=== PATIENT | female | born 1970 | race Caucasian/White ===

== ENCOUNTER 2016-11-25 11:08 | Emergency (ER) | payer BC ==
--- NOTE | 2016-11-25 13:38 | ED NURSING NOTES ---
Clinical Report - Nurses [facility] [address] [place] [address] 11/25/2016 11:08 Patient: HAYLEY RAMIREZ TRIAGE Triage time 11:19. Acuity: LEVEL 4. Chief Complaint: REDNESS and PAIN TO RIGHT EYE. Alert. No acute distress. SEPSIS SCREEN: Sepsis Screen. Negative (no infection suspected/documented). REINALDO COMA SCORE: Reinaldo Coma Scale: 15- eyes open spontaneously (4); best verbal response- oriented x 4 (5); best motor response- obeys commands (6). --11:26 Julissa Vazquez R.N. 11:19 11/25/16. BP: 117/76. HR: 86. RR: 16. O2 saturation: 97%. Temp: 97.7 F. Pain level now: 11/27. --11:26 Julissa Vazquez R.N. Weight: 99.7 kg stated. Height/Length: 62 inches Per Patient. BMI: 40.2. --11:19 Julissa Vazquez R.N. Medications Gabapentin Oral (Solution 250 mg/5mL) 5 mL, 2x a day. HydrOXYzine HCl Oral, as needed. OxyCODONE HCl Oral. Propranolol HCl ER Oral 10mg day . Rizatriptan Benzoate Oral. Adam Natural Pain Relieving External, as needed. --11:22 Julissa Vazquez R.N. Voltaren Transdermal. --11:22 Julissa Vazquez R.N. Ibuprofen Oral 800 mg. --11:22 Julissa Vazquez R.N. DULoxetine HCl Oral 20mg daily. --11:23 Julissa Vazquez R.N. Allergies Keflex. --11:23 Julissa Vazquez R.N. Antibiotic. --11:24 Julissa Vazquez R.N. The following entry was struck by Julissa Vazquez R.N., 11:23 (11/25/16) Reason - other. <<STRICKEN ENTRY-- No Known Drug Allergy. --11:22 Julissa Vazquez R.N. --END STRIKE>>. History Arrived by private vehicle. Historian: patient. Unaccompanied. Primary physician (Trevor). Onset. (2 days ago). She did not sustain an injury. 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 PAST MEDICAL HX: Immunizations: up-to-date. SOCIAL HX: Never smoker. No alcohol use or drug use. No infectious disease exposure. ABUSE ASSESSMENT: Abuse assessment: The patient was asked "Do you feel safe in your home?" and "Has anyone hurt you or threatened to hurt you?". No report of abuse. NUTRITIONAL RISK ASSESSMENT: The nutritional risk assessment revealed no deficiencies. FUNCTIONAL ASSESSMENT: Functional assessment: no impairments noted. LEARNING NEEDS ASSESSMENT: The learning needs assessment revealed no barriers. --11:26 Julissa Vazquez R.N. ( pt also c/o left arm pain. Denies injury.). --11:26 Julissa Vazquez R.N. PROBLEMS: Allergic Reaction. Fibromyalgia. Herniated Disk. Sciatica. Back Pain. Abdominal Pain. Nephrolithiasis. Tendonitis. --11:24 Julissa Vazquez R.N. ADDITIONAL SURGERIES: Back Surgery. Carpal Tunnel Surgery. Lithotripsy. Neck Surgery. --11:24 Julissa Vazquez R.N. Interventions ID band on patient. Ambulatory. --11:26 Julissa Vazquez R.N. PHYSICAL ASSESSMENT Ambulatory to room. ( left arm tenderness. No swelling present. N/V WNL). GENERAL / NEURO / PSYCH: Alert. Appears in no acute distress. RESPIRATORY: Respirations not labored. SKIN: Skin is warm and dry. --11:27 Julissa Vazquez R.N. NURSING PROGRESS NOTES Head of bed elevated. Two patient identifiers checked. Call light placed in reach. Side rails up x 2. Bed placed in lowest position. Brakes of bed on. Patient ready for evaluation- chart flagged. --11:27 Julissa Vazquez R.N. Patient informed about reason for wait and about plan of care. --13:31 Julissa Vazquez R.N. DISPOSITION / DISCHARGE 13:41 11/25/16. BP: 159/56. HR: 78. RR: 16. O2 saturation: 100%. Temp: 97.9 F. Up-Barrios pain scale: 10/28. --13:42 Julissa Vazquez R.N. Condition at departure: stable. No learning barriers present. Discharge instructions provided and reviewed with the patient. Reviewed medication(s) side effects, precautions, dosing and course information. Prescription(s) given to the patient. Reviewed referral to family practice for followup. Patient verbalized understanding. Written instructions provided in Armenian. The patient was discharged home and unaccompanied at time of discharge. She left the Emergency Department ambulatory and via private vehicle. Medication list reviewed and validated. --13:42 Julissa Vazquez R.N. Departure time: 13:42. --13:42 Julissa Vazquez R.N. Locked/Released at 11/25/2016 16:23 by Julissa Vazquez R.N.
--- NOTE | 2016-11-25 13:38 | ED NURSING NOTES ---
Clinical Report - Nurses [facility] [address] [place] [address] 11/25/2016 11:08 Patient: HAYLEY RAMIREZ TRIAGE Triage time 11:19. Acuity: LEVEL 4. Chief Complaint: REDNESS and PAIN TO RIGHT EYE. Alert. No acute distress. SEPSIS SCREEN: Sepsis Screen. Negative (no infection suspected/documented). REINALDO COMA SCORE: Reinaldo Coma Scale: 15- eyes open spontaneously (4); best verbal response- oriented x 4 (5); best motor response- obeys commands (6). --11:26 Julissa Vazquez R.N. 11:19 11/25/16. BP: 117/76. HR: 86. RR: 16. O2 saturation: 97%. Temp: 97.7 F. Pain level now: 11/27. --11:26 Julissa Vazquez R.N. Weight: 99.7 kg stated. Height/Length: 62 inches Per Patient. BMI: 40.2. --11:19 Julissa Vazquez R.N. Medications Gabapentin Oral (Solution 250 mg/5mL) 5 mL, 2x a day. HydrOXYzine HCl Oral, as needed. OxyCODONE HCl Oral. Propranolol HCl ER Oral 10mg day . Rizatriptan Benzoate Oral. Adam Natural Pain Relieving External, as needed. --11:22 Julissa Vazquez R.N. Voltaren Transdermal. --11:22 Julissa Vazquez R.N. Ibuprofen Oral 800 mg. --11:22 Julissa Vazquez R.N. DULoxetine HCl Oral 20mg daily. --11:23 Julissa Vazquez R.N. Allergies Keflex. --11:23 Julissa Vazquez R.N. Antibiotic. --11:24 Julissa Vazquez R.N. The following entry was struck by Julissa Vazquez R.N., 11:23 (11/25/16) Reason - other. <<STRICKEN ENTRY-- No Known Drug Allergy. --11:22 Julissa Vazquez R.N. --END STRIKE>>. History Arrived by private vehicle. Historian: patient. Unaccompanied. Primary physician (Trevor). Onset. (2 days ago). She did not sustain an injury. 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 PAST MEDICAL HX: Immunizations: up-to-date. SOCIAL HX: Never smoker. No alcohol use or drug use. No infectious disease exposure. ABUSE ASSESSMENT: Abuse assessment: The patient was asked "Do you feel safe in your home?" and "Has anyone hurt you or threatened to hurt you?". No report of abuse. NUTRITIONAL RISK ASSESSMENT: The nutritional risk assessment revealed no deficiencies. FUNCTIONAL ASSESSMENT: Functional assessment: no impairments noted. LEARNING NEEDS ASSESSMENT: The learning needs assessment revealed no barriers. --11:26 Julissa Vazquez R.N. ( pt also c/o left arm pain. Denies injury.). --11:26 Julissa Vazquez R.N. PROBLEMS: Allergic Reaction. Fibromyalgia. Herniated Disk. Sciatica. Back Pain. Abdominal Pain. Nephrolithiasis. Tendonitis. --11:24 Julissa Vazquez R.N. ADDITIONAL SURGERIES: Back Surgery. Carpal Tunnel Surgery. Lithotripsy. Neck Surgery. --11:24 Julissa Vazquez R.N. Interventions ID band on patient. Ambulatory. --11:26 Julissa Vazquez R.N. PHYSICAL ASSESSMENT Ambulatory to room. ( left arm tenderness. No swelling present. N/V WNL). GENERAL / NEURO / PSYCH: Alert. Appears in no acute distress. RESPIRATORY: Respirations not labored. SKIN: Skin is warm and dry. --11:27 Julissa Vazquez R.N. NURSING PROGRESS NOTES Head of bed elevated. Two patient identifiers checked. Call light placed in reach. Side rails up x 2. Bed placed in lowest position. Brakes of bed on. Patient ready for evaluation- chart flagged. --11:27 Julissa Vazquez R.N. Patient informed about reason for wait and about plan of care. --13:31 Julissa Vazquez R.N. DISPOSITION / DISCHARGE 13:41 11/25/16. BP: 159/56. HR: 78. RR: 16. O2 saturation: 100%. Temp: 97.9 F. Up-Barrios pain scale: 10/28. --13:42 Julissa Vazquez R.N. Condition at departure: stable. No learning barriers present. Discharge instructions provided and reviewed with the patient. Reviewed medication(s) side effects, precautions, dosing and course information. Prescription(s) given to the patient. Reviewed referral to family practice for followup. Patient verbalized understanding. Written instructions provided in Kiswahili. The patient was discharged home and unaccompanied at time of discharge. She left the Emergency Department ambulatory and via private vehicle. Medication list reviewed and validated. --13:42 Julissa Vazquez R.N. Departure time: 13:42. --13:42 Julissa Vazquez R.N. Locked/Released at 11/25/2016 16:23 by Julissa Vazquez R.N.
--- NOTE | 2016-11-25 13:38 | ED CLINICAL REPORT ---
Clinical Report - Physicians/Mid Levels [facility] [address] [place] [address] 11/25/2016 11:08 Patient: HAYLEY RAMIREZ Time Seen: 13:09 Nov 25 2016. Arrived- By private vehicle. Historian- patient. HISTORY OF PRESENT ILLNESS Chief Complaint: EYE PAIN and REDNESS. This started just prior to arrival, involves the right eye and is characterized as mild. The patient did not sustain an injury. Eye pain and itching. No eye redness or eye discharge. ( Patient reports drainage from the right eye today while awakening, yellow and green in nature, with swelling inferior to the eye. No injury or trauma. Some blurred vision this morning upon awakening. No blurred vision currently. No diplopia. No vision changes. No trauma. 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 Denies history of cataracts, previous ocular surgeries. Denies wearing contact lenses or corrective lenses.). REVIEW OF SYSTEMS All systems otherwise negative, except as recorded above. PAST HISTORY See nurses notes. No history of prior eye injury. Problems: Allergic Reaction. Fibromyalgia. Herniated Disk. Sciatica. Back Pain. Abdominal Pain. Nephrolithiasis. Tendonitis. Immunizations. LNMP - Last Normal Menstrual Period. Renal Colic [RuleOut]. Additional Surgeries: Back Surgery. Carpal Tunnel Surgery. Lithotripsy. Neck Surgery. Medications: DULoxetine HCl Oral 20mg daily. Ibuprofen Oral 800 mg. Voltaren Transdermal. Gabapentin Oral (Solution 250 mg/5mL) 5 mL, 2x a day. HydrOXYzine HCl Oral, as needed. OxyCODONE HCl Oral. Propranolol HCl ER Oral 10mg day . Rizatriptan Benzoate Oral. Adam Natural Pain Relieving External, as needed. Allergies: Antibiotic. Keflex. ADDITIONAL NOTES The nursing notes have been reviewed. PHYSICAL EXAM Vital Signs: 11/25/2016 11:19 BP: 117/76. HR: 86. RR: 16. O2 saturation: 97%. Temp: 97.7 F. Pain level now: 5/10. Appearance: Alert. HEENT: Ears normal. Nose normal. Head appears normal to external inspection. Eyes: Eyelids not everted for examination. Rt Eye: Pupil regular. Pupil not dilated. No eyelid erythema or EOM palsy. No stye present. No foreign body under the eyelid. Lt Eye: Left eye exam normal. CVS: Normal heart rate and rhythm. Heart sounds normal. Respiratory: No respiratory distress. Skin: (Inferior to the eye small pink area of swelling, no warmth.). Neuro: Oriented X 3. PROGRESS AND PROCEDURES Course of Care: Per history drainage and swelling of the eyelid margins, none now, inferior to the eyelid swelling. No history of allergies. Patient is afebrile. Denies any vision changes. No diplopia. Patient with no extraocular movement that is associated with pain. No current signs of preseptal or orbital cellulitis. Patient was topical antibiotics and scheduled follow-up with her ophthalmology. Stable. Patient is stable. Patient/family counseled. Disposition: Discharged. CLINICAL IMPRESSION Acute conjunctivitis of the right eye. INSTRUCTIONS No strenuous activity. (follow up with your DR / opthamoogy in 2-3 days Cool packs to lower aspect of eye Take benadryl at night time). Prescription Medications: Polytrim ophthalmic solution: Instill 1 drop into affected eye every 3 hours while awake (max 6 doses per day) for 1 week. Dispense five (5) mL. No refills. Substitution is permissible. OTC Medications: Take Benadryl according to label instructions. Available over the counter. Acetaminophen (available over the counter): take according to label instructions. Motrin (available over the counter): take according to label instructions. Follow-up: Follow up with a specialist in three days. (Electronically signed by Tasia Ruiz P.A.-C 11/25/2016 13:50)
--- NOTE | 2016-11-25 13:38 | ED CLINICAL REPORT ---
Clinical Report - Physicians/Mid Levels [facility] [address] [place] [address] 11/25/2016 11:08 Patient: HAYLEY RAMIREZ Time Seen: 13:09 Nov 25 2016. Arrived- By private vehicle. Historian- patient. HISTORY OF PRESENT ILLNESS Chief Complaint: EYE PAIN and REDNESS. This started just prior to arrival, involves the right eye and is characterized as mild. The patient did not sustain an injury. Eye pain and itching. No eye redness or eye discharge. ( Patient reports drainage from the right eye today while awakening, yellow and green in nature, with swelling inferior to the eye. No injury or trauma. Some blurred vision this morning upon awakening. No blurred vision currently. No diplopia. No vision changes. No trauma. 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 Denies history of cataracts, previous ocular surgeries. Denies wearing contact lenses or corrective lenses.). REVIEW OF SYSTEMS All systems otherwise negative, except as recorded above. PAST HISTORY See nurses notes. No history of prior eye injury. Problems: Allergic Reaction. Fibromyalgia. Herniated Disk. Sciatica. Back Pain. Abdominal Pain. Nephrolithiasis. Tendonitis. Immunizations. LNMP - Last Normal Menstrual Period. Renal Colic [RuleOut]. Additional Surgeries: Back Surgery. Carpal Tunnel Surgery. Lithotripsy. Neck Surgery. Medications: DULoxetine HCl Oral 20mg daily. Ibuprofen Oral 800 mg. Voltaren Transdermal. Gabapentin Oral (Solution 250 mg/5mL) 5 mL, 2x a day. HydrOXYzine HCl Oral, as needed. OxyCODONE HCl Oral. Propranolol HCl ER Oral 10mg day . Rizatriptan Benzoate Oral. Adam Natural Pain Relieving External, as needed. Allergies: Antibiotic. Keflex. ADDITIONAL NOTES The nursing notes have been reviewed. PHYSICAL EXAM Vital Signs: 11/25/2016 11:19 BP: 117/76. HR: 86. RR: 16. O2 saturation: 97%. Temp: 97.7 F. Pain level now: 5/10. Appearance: Alert. HEENT: Ears normal. Nose normal. Head appears normal to external inspection. Eyes: Eyelids not everted for examination. Rt Eye: Pupil regular. Pupil not dilated. No eyelid erythema or EOM palsy. No stye present. No foreign body under the eyelid. Lt Eye: Left eye exam normal. CVS: Normal heart rate and rhythm. Heart sounds normal. Respiratory: No respiratory distress. Skin: (Inferior to the eye small pink area of swelling, no warmth.). Neuro: Oriented X 3. PROGRESS AND PROCEDURES Course of Care: Per history drainage and swelling of the eyelid margins, none now, inferior to the eyelid swelling. No history of allergies. Patient is afebrile. Denies any vision changes. No diplopia. Patient with no extraocular movement that is associated with pain. No current signs of preseptal or orbital cellulitis. Patient was topical antibiotics and scheduled follow-up with her ophthalmology. Stable. Patient is stable. Patient/family counseled. Disposition: Discharged. CLINICAL IMPRESSION Acute conjunctivitis of the right eye. INSTRUCTIONS No strenuous activity. (follow up with your DR / opthamoogy in 2-3 days Cool packs to lower aspect of eye Take benadryl at night time). Prescription Medications: Polytrim ophthalmic solution: Instill 1 drop into affected eye every 3 hours while awake (max 6 doses per day) for 1 week. Dispense five (5) mL. No refills. Substitution is permissible. OTC Medications: Take Benadryl according to label instructions. Available over the counter. Acetaminophen (available over the counter): take according to label instructions. Motrin (available over the counter): take according to label instructions. Follow-up: Follow up with a specialist in three days. (Electronically signed by Tasia Ruiz P.A.-C 11/25/2016 13:50)
--- NOTE | 2016-11-25 16:24 | ED MAR SUMMARY ---
..... Medication Administration Record [facility] [address] [place], [place] [id number] Patient: HAYLEY RAMIREZ Visit ID: [id number] 46y, F Weight: 99.7 kg Height/Length: 62 in BMI: 40.2 ALLERGIES: Antibiotic, Keflex
--- NOTE | 2016-11-25 16:24 | ED DISCHARGE INSTRUCTIONS ---
Patient: HAYLEY RAMIREZ General Instructions [facility] VisitID: [id number] [place] [address] 46y, F Registration Date/Time: 11/25/2016 Acute conjunctivitis of the right eye. INSTRUCTIONS No strenuous activity. (follow up with your DR / opthamoogy in 2-3 days Cool packs to lower aspect of eye Take benadryl at night time). Prescription Medications: Polytrim ophthalmic solution: Instill 1 drop into affected eye every 3 hours while awake (max 6 doses per day) for 1 week. Dispense five (5) mL. No refills. Substitution is permissible. OTC Medications: Take Benadryl according to label instructions. Available over the counter. Acetaminophen (available over the counter): take according to label instructions. Motrin (available over the counter): take according to label instructions. Follow-up: Follow up with a specialist in three days. ADDITIONAL INFORMATION Conjunctivitis, Non-Specific The membrane that covers your eye is inflamed. Any itching, burning or irritation should go away within the next 24 hours. Conjunctivitis may be related to a particle that was in your eye. If so, it was washed out with your tears or irrigation treatment. Being exposed to liquid chemicals or fumes may also cause this reaction. Your condition does not appear to be due to an eye infection. Home Care: Apply a cold pack (ice in a plastic bag, wrapped in a towel) over the eye for 20 minutes at a time. This will reduce pain. Eye drops may be prescribed to reduce irritation or redness. Otherwise, Visine or similar [id number] decongestant eye drops may be used. You may use acetaminophen (Tylenol) or ibuprofen (Motrin, Advil) to control pain, unless another medicine was prescribed. [ NOTE: If you have chronic liver or kidney disease or ever had a stomach ulcer or GI bleeding, talk with your doctor before using these medicines.] Follow Up with your doctor or this facility as directed, or if your symptoms have not improved after 24 hours. Get Prompt Medical Attention if any of the following occur: Increased eyelid swelling Increase in eye pain Increased redness or drainage from the eye Failure of normal vision to return within 24-48 hours. You have been given the following additional information: Conjunctivitis, Non-Specific No strenuous activity. (Electronically signed by Tasia Ruiz P.A.-C 11/25/2016 13:50)
--- NOTE | 2016-11-25 16:24 | ED DISCHARGE INSTRUCTIONS ---
Patient: HAYLEY RAMIREZ General Instructions [facility] VisitID: [id number] [place] [address] [place] [address] 46y, F Registration Date/Time: 11/25/2016 Acute conjunctivitis of the right eye. INSTRUCTIONS No strenuous activity. (follow up with your DR / opthamoogy in 2-3 days Cool packs to lower aspect of eye Take benadryl at night time). Prescription Medications: Polytrim ophthalmic solution: Instill 1 drop into affected eye every 3 hours while awake (max 6 doses per day) for 1 week. Dispense five (5) mL. No refills. Substitution is permissible. OTC Medications: Take Benadryl according to label instructions. Available over the counter. Acetaminophen (available over the counter): take according to label instructions. Motrin (available over the counter): take according to label instructions. Follow-up: Follow up with a specialist in three days. ADDITIONAL INFORMATION Conjunctivitis, Non-Specific The membrane that covers your eye is inflamed. Any itching, burning or irritation should go away within the next 24 hours. Conjunctivitis may be related to a particle that was in your eye. If so, it was washed out with your tears or irrigation treatment. Being exposed to liquid chemicals or fumes may also cause this reaction. Your condition does not appear to be due to an eye infection. Home Care: Apply a cold pack (ice in a plastic bag, wrapped in a towel) over the eye for 20 minutes at a time. This will reduce pain. Eye drops may be prescribed to reduce irritation or redness. Otherwise, Visine or similar [id number]-[id number] decongestant eye drops may be used. You may use acetaminophen (Tylenol) or ibuprofen (Motrin, Advil) to control pain, unless another medicine was prescribed. [ NOTE: If you have chronic liver or kidney disease or ever had a stomach ulcer or GI bleeding, talk with your doctor before using these medicines.] Follow Up with your doctor or this facility as directed, or if your symptoms have not improved after 24 hours. Get Prompt Medical Attention if any of the following occur: Increased eyelid swelling Increase in eye pain Increased redness or drainage from the eye Failure of normal vision to return within 24-48 hours. You have been given the following additional information: Conjunctivitis, Non-Specific No strenuous activity. (Electronically signed by Tasia Ruiz P.A.-C 11/25/2016 13:50)
--- NOTE | 2016-11-25 16:24 | ED MED RECONCILIATION SUMMARY ---
Patient: HAYLEY RAMIREZ Medication Reconciliation Report [facility] VisitID: [id number] [address] [place] [address] 46y, F Registration Date/Time: 11/25/2016 Weight: 99.7 kg Height/Length: 62 in. BMI: 40.2 ALLERGIES: Antibiotic, Keflex The patient's Home Medications are listed below: THE FOLLOWING MEDICATIONS NEED TO BE RECONCILED: DULoxetine HCl Oral 20mg daily Gabapentin Oral (250 mg/5mL) 5 mL, 2x a day HydrOXYzine HCl Oral Ibuprofen Oral 800 mg OxyCODONE HCl Oral Propranolol HCl ER Oral 10mg day Rizatriptan Benzoate Oral Adam Natural Pain Relieving External Voltaren Transdermal The source(s) of the original Home Medication information: Not obtained. The following Medications were given to the patient in the Emergency Department: None. The following Medications were prescribed to the patient: Take Benadryl according to label instructions. Available over the counter. -- Tasia Ruiz, P.A.-C Acetaminophen (available over the counter): take according to label instructions. -- Tasia Ruiz, P.A.-C Motrin (available over the counter): take according to label instructions. -- Tasia Ruiz, P.A.-C Polytrim ophthalmic solution: Instill 1 drop into affected eye every 3 hours while awake (max 6 doses per day) for 1 week. Dispense five (5) mL. No refills. Substitution is permissible. -- Tasia Ruiz, P.A.-C
--- NOTE | 2016-11-25 16:24 | ED MED RECONCILIATION SUMMARY ---
Patient: HAYLEY RAMIRZE Medication Reconciliation Report [facility] VisitID: [id number] [address] [place] [address] 46y, F Registration Date/Time: 11/25/2016 Weight: 99.7 kg Height/Length: 62 in. BMI: 40.2 ALLERGIES: Antibiotic, Keflex The patient's Home Medications are listed below: THE FOLLOWING MEDICATIONS NEED TO BE RECONCILED: DULoxetine HCl Oral 20mg daily Gabapentin Oral (250 mg/5mL) 5 mL, 2x a day HydrOXYzine HCl Oral Ibuprofen Oral 800 mg OxyCODONE HCl Oral Propranolol HCl ER Oral 10mg day Rizatriptan Benzoate Oral Adam Natural Pain Relieving External Voltaren Transdermal The source(s) of the original Home Medication information: Not obtained. The following Medications were given to the patient in the Emergency Department: None. The following Medications were prescribed to the patient: Take Benadryl according to label instructions. Available over the counter. -- Tasia Ruiz, P.A.-C Acetaminophen (available over the counter): take according to label instructions. -- Tasia Ruiz, P.A.-C Motrin (available over the counter): take according to label instructions. -- Tasia Ruiz, P.A.-C Polytrim ophthalmic solution: Instill 1 drop into affected eye every 3 hours while awake (max 6 doses per day) for 1 week. Dispense five (5) mL. No refills. Substitution is permissible. -- Tasia Ruiz, P.A.-C
--- NOTE | 2016-11-25 16:24 | ED MAR SUMMARY ---
..... Medication Administration Record [facility] [address] [place], [place] [id number] Patient: HAYLEY RAMIREZ Visit ID: [id number] 46y, F Weight: 99.7 kg Height/Length: 62 in BMI: 40.2 ALLERGIES: Antibiotic, Keflex
== END 2016-11-25 13:42 | disposition home or self-care (01) ==
LOC: ED SRH 11:08
DX: H10.31 Unspecified acute conjunctivitis, right eye (principal); Z79.899 Other long term (current) drug therapy; Z88.8 Allergy status to other drugs, medicaments and biological substances; Z88.1 Allergy status to other antibiotic agents